=== PATIENT | female | born 1975 | race Caucasian/White ===

== ENCOUNTER → 2019-01-23 07:19 | Outpatient (CLI) | payer OTHER, SELFPAY ==
--- NOTE | 2019-01-23 07:22 | MRI_ITS ---
STUDY: MRI LUMBAR SPINE WITHOUT CONTRAST REASON FOR EXAM: Female, 43 years old. Low back pain, left leg pain and radiculopathy. TECHNIQUE: Standardized fat and water weighted pulse sequences were obtained in the sagittal and axial planes. COMPARISON: None FINDINGS: T12-L1: Normal endplates. Normal disc height, hydration and morphology. Normal bilateral facet joints. Normal central canal and bilateral lateral recesses. Normal bilateral intervertebral neural foramina. Normal lumbar lordosis. There is no substantial scoliosis. Normal conus medullaris that terminates at the L1. L1-2: Normal endplates. Normal disc height, hydration and morphology. Normal bilateral facet joints. Normal central canal and bilateral lateral recesses. Normal bilateral intervertebral neural foramina. L2-3: Normal endplates. Normal disc height, hydration and morphology. Normal bilateral facet joints. Normal central canal and bilateral lateral recesses. Normal bilateral intervertebral neural foramina. L3-4: Normal endplates. Normal disc height, hydration and morphology. Normal bilateral facet joints. Normal central canal and bilateral lateral recesses. Normal bilateral intervertebral neural foramina. L4-5: Mild bilateral facet hypertrophy and ligament flavum hypertrophy. Mild broad disc protrusion produces mild spinal stenosis with mild bilateral lateral recess stenosis and mild bilateral neural foraminal stenosis. L5-S1: Small central disc protrusion produces mild spinal stenosis and mild bilateral lateral recess stenosis but no neural foraminal stenosis. Normal visualized sacral ala. Normal visualized paraspinous soft tissue structures. MRI/Spine Lumbar (Routine) IMPRESSION: Multilevel degenerative changes, as described above. Electronically Signed: Fran Claire MD at 15:35 EDT Tel , Service support ,
== END ==
PROVIDERS: Family Provider Preventive Medicine Occupational Medicine; PCP Preventive Medicine Occupational Medicine; Referring Provider Chiropractor; Visit Provider Chiropractor
DX: S33.5XXA Sprain of ligaments of lumbar spine, initial encounter (principal)
CPT/HCPCS: 72148

== ENCOUNTER → 2023-08-15 | Outpatient (CLI) | payer OTHER, SELFPAY ==
[2023-08-15 17:52] LABS: Mean Corp Hgb Conc 31.6 g/dL (32-36); Mean Corpuscular Hgb 28.1 pg (27.0-32.0); Mean Platelet Vol. 10.8 fl (6.2-12.0); Platelet Count 388 K/mm3 (150-450); RBC Distribution Width CV 13.5 % (11.6-14.6); RBC Distribution Width SD 43.7 fl (35.1-43.9); Red Blood Count 4.27 M/mm3 (4.2-5.4); White Blood Count 12.6 K/mm3 (4.4-11.0)
[2023-08-15 18:03] LABS: AST(SGOT) 24 U/L (15-37); Alanine Aminotransfer ALT/SGPT 35 U/L (13-56); Albumin, Serum 3.6 g/dL (3.2-5.0); Alkaline Phosphatase 66 U/L (45-117); Anion Gap 5 (5-15); BUN 25 mg/dL (7-18); BUN/Creat Ratio 25.7 RATIO (10-20); CRP < 2.90 mg/L (0.0-3.0); Calcium,Total 8.7 mg/dL (8.5-10.1); Chloride 110 mmol/L (98-107); Creatinine, Serum 0.97 mg/dL (0.55-1.02); EST Glomerular Filtration Rate 65 mL/min (>60); Est Glom Filt Rate - Afr Amer 79 mL/min (>60); Globulin 3.6 g/dL (2.2-4.2); Glucose 95 mg/dL (74-106); Potassium 3.8 mmol/L (3.5-5.1); Protein, Total 7.2 g/dL (6.4-8.2); Sodium Level 138 mmol/L (136-145)
== END | disposition home or self-care (01) ==
PROVIDERS: PCP Preventive Medicine Occupational Medicine; Referring Provider Internal Medicine Gastroenterology; Visit Provider Internal Medicine Gastroenterology
DX: K50.90 Crohn's disease, unspecified, without complications (principal)
CPT/HCPCS: 36415; 80053; 85027; 86140

== ENCOUNTER 2024-06-06 13:00 | Outpatient (RCR) | payer OTHER, SELFPAY ==
--- NOTE | 2024-05-02 15:01 | HP.SP.EVAL ---
Visit History Visit Info Date of Eval: 04/17/24 Visit: 1 Loss Prevention Guard: SOHAM History Attending Doctor: Referring Doctor: Reason for Referral: DYSPHONIA/RX HERE Medical Diagnosis: Dysphonia Date of Onset of Diagnosis: April 2023 Previous speech therapy: No Other Relevant Medical History/Diagnoses/Surgery: Patient has been followed by ENT for hoarseness which has been off and on for nearly a year. She has lot her voice 10 times ( approximately once a month for 5-7 days ).She has been referred to GI ( Dr. Jackson) with an EGD planned for next week. In the last month her voice has been always hoarse and very near to a whisper most of the time. Medications related to this diagnosis: Mucinex and prilosec. Smoking Status: Unknown if ever smoked Diagnosis Diagnosis: Severe Dysphonia Pain Is pain an issue with your current prescribed condition?: No Personal Preferred language: Nigerien Patient Allergies Allergies Allergies: Allergies latex Adverse Reaction (Verified 03/14/17 01:13) Rash Subjective Voice Informal Questioner Do you scream (anger, sporting event, work, noisy envirmonment): Less than average Do you raise your voice (e.g. parenting, calling from room to room, etc.): Less than average Do you talk for long periods of time without a break (teacher, lamb): Less than average Are you a talker: Less than average Do you clear your throat: More than average Do you cough: More than average How often do you use the telephone: Average Do you do impersonations, character voices or unusual sound effects: None Medications Mediations: Prilosec Intubation Was the Client intubated: No Intake Water (ounces): 48 Coffee (ounces): 0 Soda (ounces): 16 Energy drinks (ounces): 0 Other Product Usage Do you use products containing menthol (if yes, list): No Do you take Vitamin C Supplements (if yes, list amt (mg)/day: Yes Objective Voice Date of Diagnosis Previous Speech Therapy (If yes, describe): No Objective data Objective Data: Objective data: Sound pressure level (SPL acoustic correlation of vocal loudness) was measured with a sound level meter at a distance of 40 cm from the patient's mouth. Average conversational loudness is 70-80 dB and sustained phonation duration is 15 to 20 seconds for a typical adult. Is the individual stimulable to increase vocal intensity: No Vocal Intensity at Conversational Level (dB SPL): 52 Observational Assessment S/Z Ratio: unable to complete due to aphonia today Subjective Clinical Impression Adult Clinical Impression Dysphonia: any 'abnormal' vocal quality suggesting an interruption of normal production: Present Hoarseness: excessive 'noise' in the signal creating an unpleasant, rough vocal quality: Present Vocal fatigue: a 'tired' voice or feeling of excessive effort to phonate: Present Vocal tension: a tightness of the laryngeal musculature during voicing: Present Non-Phonatory Behaviors/Respiration Reduced loudness or vocal weakness: Present Limited breath support for speech: Present Infrequent breaths; talking too long on one breath: Present Clavicular breathing: excessive movement of the chest and shoulders during inspiration: Present Throat clearing/coughing: Present Reference: Neuro-QoL instrument HDQLIFE - Speech Difficulties In the past 7 days. It was difficult for other people to understand me.: Always Is was difficult to speak clearly?: Never In the past 7 days.. How often did you limit your social activites because you had difficulty speaking?: Often In the past 7 days... I had trouble speaking.: Very much I was frustrated by my speech difficulties.: Very much How much DIFFICULTY do you have... ...saying what you want to say?: A lot of difficulty Score HDQLIFE Speech Difficulties Raw Score: 24 HDQLIFE Speech Difficulties T - Score: 63 Radiation Oncology Patient Plan Plan Plan: Will recommend Pt for weekly outpatient speech therapy for voice therapy as currently patient's voice is minimally functional for her activities of daily living. Recommendations Treatment Warranted: Yes Treatment Warranted: Voice Progress Prognosis: Good Frequency Frequency: 1x/Week Duration: 3 Months Visits in this POC: 8 Patient/Family Goal Patient/Family Goal: Patient wants to be able to communicate effectively with good voice. Goals that are Established Determination:: Goals will be added/modified as deemed necessary and appropriate. Therapy will be discontinued when results of re-evaluation indicate therapy is no longer needed or lack of progress has been documented. Goal #1-5 Goal #1: To reduce vocal fold tension, Pt will demonstrate relaxation techniques including but not limited to easy onset during voicing and stretching with greater than 90% acc independently. Goal #2: Patient will establish volitional control of respiration evidenced by utilization of diaphragmatic breathing during structured tasks within 4 weeks with 100% accuracy independently. Goal #3: Patient will utilize voice facilitation and resonance training to initiate voicing 80% of the time in isolation and in words with fading cues within 8 weeks. Education Patient Instruction Patient Education: Diagnosis, Treatment Plan, Goals and Home Exercise Program Person Taught: Patient Teaching Method: Discussion Response to teaching: Verbalize Understanding
--- NOTE | 2024-09-24 14:53 | HP.SP.DC_ITS ---
ST Discharge Summary Discharged: Discharge: Adenike Polanco is discharged from [facility] speech therapy as of 09/24/24. She was evaluated on 04/17/25 with therapy recommended weekly for dysphonia. She completed 4 visits from 05-02-24 to 06/06/24 with the focus on reducing vocal fold tension with relaxation t echniques and use of diaphragmatic breathing as well as voicing with volitional control. Another therapy session was recommended in one month for her to continue to practice techniques. She did not return to therapy at that time. Please see notes for last known details. Thank you for allowing me to participate in the care of your patient.
== END 2024-06-06 19:00 | disposition home or self-care (01) ==
LOC: SP 13:00
PROVIDERS: PCP Preventive Medicine Occupational Medicine; Referring Provider Otolaryngology; Visit Provider Otolaryngology
DX: R49.0 Dysphonia (principal)
CPT/HCPCS: 92507; 92524

== ENCOUNTER → 2024-08-24 | Outpatient (CLI) | payer OTHER, SELFPAY ==
[2024-08-24 18:02] LABS: Hematocrit 36.8 % (37-47); Hemoglobin 11.5 g/dL (12.0-15.0); Mean Corp Hgb Conc 31.3 g/dL (32-36); Mean Corpuscular Hgb 26.4 pg (27.0-32.0); Mean Corpuscular Volume 84.4 fL (81-99); Mean Platelet Vol. 10.7 fl (6.2-12.0); Platelet Count 473 K/mm3 (150-450); RBC Distribution Width CV 14.3 % (11.6-14.6); RBC Distribution Width SD 43.9 fl (35.1-43.9); Red Blood Count 4.36 M/mm3 (4.2-5.4); White Blood Count 8.2 K/mm3 (4.4-11.0)
[2024-08-24 18:32] LABS: CRP < 2.90 mg/L (0.0-3.0); T4 Total, Thyroxin 4.7 ug/dL (4.8-13.9)
[2024-08-25 09:42] LABS: Vitamin B12 687 pg/mL (211-911)
== END | disposition home or self-care (01) ==
LOC: MTLAB 15:31
PROVIDERS: PCP Preventive Medicine Occupational Medicine; Referring Provider Internal Medicine Gastroenterology; Visit Provider Internal Medicine Gastroenterology
DX: K50.90 Crohn's disease, unspecified, without complications (principal)
CPT/HCPCS: 36415; 82607; 84436; 84443; 85027; 86140